=== PATIENT | male | born 1990 | race African-American/Black ===

== ENCOUNTER 2025-08-24 19:21 | Emergency (ER) | payer OTHER ==
[~2025-08-24] VITALS: Ht 180.3 cm; Wt 153.4 kg
[2025-08-24 19:31] VITALS: TEMP 36.6; O2SAT 98
[2025-08-24] MEDS: CYCLOBENZAPRINE 10MG TABLET PO ONE (21:15)
[2025-08-24] MEDS: KETOROLAC 30MG/ML VIAL IM ONE (21:15)
[2025-08-24] MEDS ORDERED: CYCL10TA21 MT (21:58)
[2025-08-24] MEDS ORDERED: NAPR-1176 MT (21:58)
[2025-08-24] MEDS ORDERED: LIDO1ADH6 TP (21:58)
[2025-08-24 22:57] VITALS: BP 135/78; PULSE 87; RESP 17; O2SAT 98
== END 2025-08-24 22:55 | disposition home or self-care (01) ==
LOC: ER 19:30
DX: S50.01XA Contusion of right elbow, initial encounter (principal); M54.2 Cervicalgia; M54.50 Low back pain, unspecified; Z91.030 Bee allergy status; V89.2XXA Person injured in unspecified motor-vehicle accident, traffic, initial encounter; Y93.89 Activity, other specified; Y92.89 Other specified places as the place of occurrence of the external cause; Y99.8 Other external cause status
CPT/HCPCS: 99283; 73080; 96372; J1885; A6449; A4565